=== PATIENT | male | born 1990 | race Caucasian/White ===

== ENCOUNTER 2019-08-08 12:20 | Day surgery (SDC) | payer OTHER, SELFPAY ==
--- NOTE | 2019-08-08 | PATH_ITS ---
[facility] Accession Number: [id number] . 01 Material submitted: . esophagus - PROXIMAL AND DISTAL ESOPHAGEAL BIOPSIES . 01 Clinical history: . R/O EOE . 02 Diagnosis: Proximal and Distal Esophagus, Biopsies: Squamous mucosa with increased intraepithelial eosinophils (greater than 50 per high powered field). See comment. Negative for fungal organisms on PAS stain. Negative for dysplasia and malignancy. V 08/10/2019 1307 Local . 02 Comment: In the proper clinical setting, the histopathologic appearance would support a clinical impression of eosinophilic esophagitis. The differential diagnosis includes drug reaction, gastroesophageal reflux, and food allergies. . As part of routine customer quality specialist, Dr. Sanchez has reviwed this case and agrees with the above diagnosis. . 02 Electronically signed: . Isauro Gandhi MD, PhD, Pathologist NPI- [id number] . 01 Gross description: . PROXIMAL AND DISTAL ESOPHAGEAL BIOPSIES: Received in formalin are multiple fragment(s) of castro, soft tissue measuring 0.1 x 0.1 x 0.1 cm to 0.2 x 0.1 x 0.1 cm submitted entirely in 1 cassette(s) /[facility] [place] 08/08/2019 2033 Local . 02 Microscopic: . An AB/PAS stain is negative for fungal organisms, a control stain shows expected reactivity. . 02 Pathologist provided ICD-10: R13.14, K20.0 . 02 CPT . 812592, [id number] Performed at: 01 [facility] [address] [id number] MD Ryan Kraft MD Phone: [phone] Performed at: [facility] [address] [place], [place] [id number] MD Joan Sanchez MD Phone: [phone]
--- NOTE | 2019-08-08 09:01 | PM.HP.1 ---
History of Present Illness History of Present Illness Date Patient Seen: 08/08/19 Chief complaint: [id number] Narrative: Patient presented for EGD. Patient was seen in the office 07/10/19 for esophageal dysphagia. History of food bolus in [place]. Meds Home Medications and Allergies Home Medications Medication Instructions Recorded Confirmed Type omeprazole magnesium [Prilosec OTC] 20 mg PO DAILY 08/08/19 08/08/19 History Allergies Allergy/AdvReac Type Severity Reaction Status Date / Time No Known Drug Allergies Allergy Verified 08/08/19 12:52 Review of Systems Review of Systems ROS Unobtainable: All systems reviewed & are unremarkable except as noted in HPI and below Exam Const General: cooperative, healthy appearing, comfortable, well developed, well groomed and No acute distress Nutritional Appearance: average body habitus Orientation: alert, awake and oriented x3 Resp Effort & Inspection: normal respiratory effort and able to speak in complete sentences Auscultation: clear to auscultation bilaterally Cardio Rate: regular rate Rhythm: regular rhythm Heart Sounds: S1 normal and S2 normal GI Palpation: soft and No tender Auscultation: normal bowel sounds Extrem Right lower extremity: no edema Left lower extremity: no edema Assessment & Plan Assessment & Plan narrative: 1. Esophageal dysphagia 2. History of food bolus - EGD today, further recommendations to follow.
[2019-08-08 12:53] VITALS: BP 136/83; PULSE 59; RESP 18; TEMP 36.5; O2SAT 100; BMI 23.4
[2019-08-08] MEDS: SODIUM CHLORIDE 0.9% 1,000 ML 70 ML IV (13:03)
[2019-08-08] MEDS: LIDOCAINE 4% SOLN 50 ML 20 ML TOP (13:49)
[2019-08-08] MEDS: fentaNYL 250 MCG/5 ML INJ IV (13:59)
[2019-08-08] MEDS: MIDAZOLAM 5 MG/5 ML VIAL IV (14:00)
[2019-08-08 14:06] VITALS: BP 130/85; PULSE 58; RESP 10; TEMP 36.8; O2SAT 95
--- NOTE | 2019-08-08 14:06 | PM.OP.ENDO ---
Operative Date/Time/Diagnoses Date of procedure: 08/08/19 Time of procedure: 13:57 Procedure Notes Procedure in detail: Surgeon: Janina Lacey DO Procedure: Esophagogastroduodenoscopy with biopsy Preoperative diagnosis: 1. Esophageal dysphagia 2. History of food bolus Postoperative diagnosis: 1. Mucosal changes suggestive of eosinophilic esophagitis, biopsied Medications: Conscious sedation using 5 mg IV of Midazolam and 150 mcg IV of Fentanyl Preanesthesia Assessment An H and P was performed/updated and the Px?s ASA class is 1. The procedure was discussed in detail with the patient. The potential risks and complications including infection, bleeding, missed lesions, perforation, need for surgery in case of perforation, prolonged hospital stay, and were explained. A brief question and answer period was allotted and once all questions were answered, informed consent was obtained. The patient was brought back to the procedure room and placed on standard monitoring. The patient?s vital signs were monitored continuously throughout the entire procedure. Prior to starting, a timeout was performed to confirm the patient?s identity, allergies, medications, and procedure. Procedure in detail The patient was placed in left lateral decubitus position and a bite block was inserted. The tip of the upper endoscope was placed into the mouth and advanced without difficulty under direct visualization into the esophagus. Esophagus: Ringed and linear furrows noted within the esophagus suggestive of eosinophilic esophagitis -biopsied Stomach: Normal appearing stomach Duodenum: A normal-appearing small intestine The patient tolerated the procedure well and will be brought back to the recovery area to be discharged once criteria are met. The total physician intraservice time was 9min. Complications There were no complications and estimated blood loss was minimal. Recommendations: Resume previous diet Continue outPx medications Follow up pathology results Continue mechanically altered diet Office follow up if persistent symptoms An emergency contact number was given to the patient for any complications related to the procedure
[2019-08-08 14:16] VITALS: BP 138/91; PULSE 77; RESP 7; O2SAT 93
[2019-08-08 14:22] VITALS: BP 138/90; PULSE 69; RESP 14; O2SAT 94
[2019-08-08 14:36] VITALS: BP 124/72; PULSE 56; RESP 17; TEMP 36.7; O2SAT 98
== END 2019-08-08 14:44 | disposition home or self-care (01) ==
PROVIDERS: Visit Provider Student in an Organized Health Care Education/Training Program
PROC: 0DJ08ZZ Inspection of Upper Intestinal Tract, Via Natural or Artificial Opening Endoscopic (ICD-10-PCS; CPT 43235; principal; 2019-08-08 13:00)
DX: K20.0 Eosinophilic esophagitis (principal)
CPT/HCPCS: 43239; J2250; J3010